=== PATIENT | female | born 1970 | race Caucasian/White ===

== ENCOUNTER 2024-04-21 13:12 | Inpatient (IN) | payer OTHER, SELFPAY ==
[2024-04-21] VITALS (7 sets, daily range): BP systolic 98–134; BP diastolic 60–81; BMI 18.1
[2024-04-21 09:24] LABS: % Basophils 0.2 % (0-2); % Immature Granulocytes 0.4 % (0-0.5); % Lymphocytes 9.6 % (20.5-51.1); % Neutrophils 82.8 % (42.2-75.2); Absolute Immature Granulocytes 0.1 10^3/uL (0-0.05); Absolute Lymphocytes 1.4 10^3/uL (1.2-3.4); Absolute Neutrophils 11.7 10^3/uL (1.4-6.5); Hematocrit 48.1 % (37.0-47.0); Hemoglobin 16.8 g/dL (12.0-16.0); Mean Corp Hgb Conc. 34.9 g/dL (33.0-37.0); Mean Corpuscular Hgb 30.6 pg (27.0-31.0); Mean Corpuscular Volume 87.6 fL (81.0-99.0); Mean Platelet Volume 10.6 fL (7.4-10.4); Nucleated Red Blood Cells % 0 %; Platelet Count 255 10^3/uL (130-400); Red Blood Cell Count 5.49 10^6/uL (4.20-5.40); Red Cell Dist. Width 12.3 % (11.5-14.5); White Blood Cell Count 14.1 10^3/uL (4.8-10.8)
[2024-04-21 09:33] LABS: ALT (SGPT) 16 U/L (0-35); AST (SGOT) 24 U/L (14-36); Albumin 4.3 g/dl (3.5-5.0); Alkaline Phosphatase 61 U/L (38-126); Blood Urea Nitrogen 12 mg/dl (7-17); COVID-19 Antigen Negative (Negative); Calcium 9.3 mg/dl (8.4-10.2); Carbon Dioxide 25 mmol/L (22-30); Chloride 95 mmol/L (98-107); Glucose 119 mg/dl (70-99); Potassium 3.2 mmol/L (3.5-5.1); Sodium 134 mmol/L (135-145); Total Bilirubin 0.5 mg/dl (0.2-1.3); Total Protein 7.2 g/dl (6.3-8.2); eGFR > 60.00
--- NOTE | 2024-04-21 09:39 | ED.GENMED ---
History of Present Illness
<Yanira Johnson TIRE SPECIALIST - Last Filed: 04/21/24 18:09>
General
Chief Complaint: Cold/Flu/URI Symptoms
Source: patient and spouse
Exam Limitations: none
Time Seen by Provider: 04/21/24 08:58
Nursing documentation reviewed up to this point in time: agreed with
History of Present Illness
History of Present Illness:
53 yo female w h/o seizures, chronic neck and back pain, present for 4-5 days illness. Started with scratchy throat, then moved to chest congestion, cough productive of 'brown mucus.' [place] feverish, didn't take temp. Took Tylenol VETERINARIAN SMALL ANIMAL. Vomited once,
diarrhea x 3 yesterday, none today after taking Imodium.
Past History
<Yanira Johnson, TIRE SPECIALIST - Last Filed: 04/21/24 18:09>
Past History
ED Past Medical History: Seizures and Other (chronic neck and back pain)
ED Past Surgical History: None
Social History
Tobacco: Former smoker
Alcohol: None
Personal:
Living: with family
Employment: Employed
Review of Systems
<Yanira Johnson, TIRE SPECIALIST - Last Filed: 04/21/24 18:09>
Review of Systems
Allergies reviewed?: Yes
All Other Systems: ROS reviewed and negative except as documented in HPI and ROS
Constitutional: Reports fever
Respiratory: Reports cough; Denies trouble breathing
Cardiac: Denies chest pain
ABD/GI: Reports diarrhea (yesterday, none today); Denies abdominal pain or vomiting
: Denies dysuria or difficulty voiding
Musculoskeletal: Reports no symptoms and other
Skin: Reports no symptoms
Neurological: Reports no symptoms
Phy Exam
<Yanira Johnson, TIRE SPECIALIST - Last Filed: 04/21/24 18:09>
Physical Exam
Physical Exam:
GENERAL: No acute distress. A&Ox3.
CONSTITUTIONAL: Afebrile.
EYES: clear, conjunctivae normal
ENMT: moist mucus membranes, Pharynx nl
RESPIRATORY: Regular respirations, nonlabored, lungs with rhonchi in right mid to lower lung godfrey.
CARDIOVASCULAR: Regular rate and rhythm, no murmurs, no rubs.
GI: Soft, nontender, normal BS
MUSCULOSKELETAL: Moves with ease. Well perfused.
SKIN: Warm, dry, pink
PSYCH: Normal mood and affect. Well kept, interactive and appropriate
NEUROLOGIC: Awake, alert and oriented. No focal neurological deficits
Course
<Yanira Johnson, TIRE SPECIALIST - Last Filed: 04/21/24 18:09>
Orders/Labs/Results
Orders:
Orders
04/21/24 09:02
COVID-19 Antigen Urgent
Source: Nasal Swab
Complete Blood Count/With Diff Urgent
Comprehensive Metabolic Panel Urgent
Influenza A+B Rapid Molecular Urgent
RODDY Source: Nasal Swab
Specimen Description:
04/21/24 09:38
CR Chest - 2 Views Urgent
Comment:
Reason For Exam: fever, flu+, coarse rhonchi Right lung
04/21/24 09:44
Encourage PO Hydration-Treatme ONCE
04/21/24 09:46
Potassium Chloride [KCl] 40 meq PO NOW STA
04/21/24 10:34
Azithromycin 500 mg/250 ml [Zithromax Infusion] 500 mg in 250 ml IV NOW
04/21/24 12:14
Admit/Transfer Patient As Directed
Co-Sign Provider:
Level of Care: Inpatient admission
Assign to:: Medical/Surgical
Physician / Group: Hospitalist
Diagnosis: Pneumonia
Patient Condition: Fair
Reason for Hospitalization: Pneumonia with SIRS criteria met on arrival
Expected length of stay greater than two midnights?: Yes
ELOS- Estimated Length of Stay in days: 2
I certify the patient meets the requirements for IP care: Yes
04/21/24 12:15
PRN Pain Medication Management As Directed
May give lesser potent ordered pain med per pt: Yes
preference::
Protocol:: Medication orders for pain may be administered in a
manner that supports deferring to patient preference
when the pt is:
- Requesting an ordered lesser potent pain medication.
Least to most potent pain medications are defined
as: acetaminophen < NSAID < tramadol < opioids
(morphine, oxycodone, hydromorphone).
- Requesting a lesser dose of the same medication IF
ORDERED.
- Requesting a less intrusive route of administration
if both routes are prescribed by the provider (PO <
IV).
04/21/24 12:24
Code Status As Directed
Resuscitation Status: Full Code
04/21/24 13:59
0.9% Sodium Chloride 1000 ml [Nss] 1,000 ml IV 75 mls/hr
Bisacodyl [Dulcolax] 10 mg RECTAL [id number] PRN
Docusate W/Senna [Senokot-S] 1 tablet PO BIDPRN PRN
Lamotrigine [Lamictal] 100 mg PO ONCE ONE
Ondansetron Injectable [Zofran] 4 mg IV Q6HPRN PRN
Oxycodone/Acetaminophen [Percocet 5/325] 1 tablet PO TIDPRN PRN
Polyethylene Glycol Powder [Miralax] 17 grams PO DAILYPRN PRN
04/21/24 13:59
Activity As Directed
Activity Level: As Tolerated
Vital Signs As Directed
Frequency: Per unit guidelines
DX Deep Vein Thrombosis Video Routine
04/21/24 14:00
CefTRIAXone [Rocephin] 1,000 mg IV Q24H
04/21/24 Dinner
Regular
At Your Request: Full Participation
04/21/24 18:00
Enoxaparin Sodium [Lovenox] 40 mg SC QPM
04/21/24 22:00
tafluprost (PF) [Zioptan (PF)] 1 drop BOTH EYES HS
04/22/24 06:00
Basic Metabolic Panel IN AM
Complete Blood Count/No Diff IN AM
Magnesium IN AM
04/22/24 08:00
Azithromycin [Zithromax] 500 mg PO DAILY
Lamotrigine [Lamictal] 100 mg PO DAILY
Abnormal Lab Results
04/21/24
09:02
WBC 14.1 H 10^3/uL
(4.8-10.8)
RBC 5.49 H 10^6/uL
(4.20-5.40)
Hgb 16.8 H g/dL
(12.0-16.0)
Hct 48.1 H %
(37.0-47.0)
MPV 10.6 H fL
(7.4-10.4)
Abs Immat Gran (auto) 0.1 H 10^3/uL
(0-0.05)
Absolute Neuts (auto) 11.7 H 10^3/uL
(1.4-6.5)
Absolute Monos (auto) 1.0 H 10^3/uL
(0.1-0.6)
Neutrophils % 82.8 H %
(42.2-75.2)
Lymphocytes % 9.6 L %
(20.5-51.1)
Sodium 134 L mmol/L
(135-145)
Potassium 3.2 L mmol/L
(3.5-5.1)
Chloride 95 L mmol/L
(98-107)
Glucose 119 H mg/dl
(70-99)
04/21/24 09:02
04/21/24 09:02
Vital Signs
Initial and Last Documented VS:
Initial Vital Signs
Temp Pulse Resp BP Pulse Ox
98.5 F 97 20 118/81 95
04/21/24 08:46 04/21/24 08:46 04/21/24 08:46 04/21/24 08:46 04/21/24 08:46
Last Documented Vital Signs
Temp Pulse Resp BP Pulse Ox
99.4 F 86 18 110/72 95
04/21/24 16:06 04/21/24 13:58 04/21/24 13:58 04/21/24 13:58 04/21/24 13:58
Divorce Mediator consulted with Physician
Divorce Mediator consulted with physician?: Yes
Name of Physician Consulted: Donna
<Allan Thompson MD - Last Filed: 04/21/24 10:38>
Orders/Labs/Results
Orders:
Orders
04/21/24 09:02
COVID-19 Antigen Urgent
Source: Nasal Swab
Complete Blood Count/With Diff Urgent
Comprehensive Metabolic Panel Urgent
Influenza A+B Rapid Molecular Urgent
RODDY Source: Nasal Swab
Specimen Description:
04/21/24 09:38
CR Chest - 2 Views Urgent
Comment:
Reason For Exam: fever, flu+, coarse rhonchi Right lung
04/21/24 09:44
Encourage PO Hydration-Treatme ONCE
04/21/24 09:46
Potassium Chloride [KCl] 40 meq PO NOW STA
04/21/24 10:34
Azithromycin 500 mg/250 ml [Zithromax Infusion] 500 mg in 250 ml IV NOW
04/21/24 12:14
Admit/Transfer Patient As Directed
Co-Sign Provider:
Level of Care: Inpatient admission
Assign to:: Medical/Surgical
Physician / Group: Hospitalist
Diagnosis: Pneumonia
Patient Condition: Fair
Reason for Hospitalization: Pneumonia with SIRS criteria met on arrival
Expected length of stay greater than two midnights?: Yes
ELOS- Estimated Length of Stay in days: 2
I certify the patient meets the requirements for IP care: Yes
04/21/24 12:15
PRN Pain Medication Management As Directed
May give lesser potent ordered pain med per pt: Yes
preference::
Protocol:: Medication orders for pain may be administered in a
manner that supports deferring to patient preference
when the pt is:
- Requesting an ordered lesser potent pain medication.
Least to most potent pain medications are defined
as: acetaminophen < NSAID < tramadol < opioids
(morphine, oxycodone, hydromorphone).
- Requesting a lesser dose of the same medication IF
ORDERED.
- Requesting a less intrusive route of administration
if both routes are prescribed by the provider (PO <
IV).
04/21/24 12:24
Code Status As Directed
Resuscitation Status: Full Code
04/21/24 13:59
0.9% Sodium Chloride 1000 ml [Nss] 1,000 ml IV 75 mls/hr
Bisacodyl [Dulcolax] 10 mg RECTAL [id number] PRN
Docusate W/Senna [Senokot-S] 1 tablet PO BIDPRN PRN
Lamotrigine [Lamictal] 100 mg PO ONCE ONE
Ondansetron Injectable [Zofran] 4 mg IV Q6HPRN PRN
Oxycodone/Acetaminophen [Percocet 5/325] 1 tablet PO TIDPRN PRN
Polyethylene Glycol Powder [Miralax] 17 grams PO DAILYPRN PRN
04/21/24 13:59
Activity As Directed
Activity Level: As Tolerated
Vital Signs As Directed
Frequency: Per unit guidelines
DX Deep Vein Thrombosis Video Routine
04/21/24 14:00
CefTRIAXone [Rocephin] 1,000 mg IV Q24H
04/21/24 Dinner
Regular
At Your Request: Full Participation
04/21/24 18:00
Enoxaparin Sodium [Lovenox] 40 mg SC QPM
04/21/24 22:00
tafluprost (PF) [Zioptan (PF)] 1 drop BOTH EYES HS
04/22/24 06:00
Basic Metabolic Panel IN AM
Complete Blood Count/No Diff IN AM
Magnesium IN AM
04/22/24 08:00
Azithromycin [Zithromax] 500 mg PO DAILY
Lamotrigine [Lamictal] 100 mg PO DAILY
Abnormal Lab Results
04/21/24
09:02
WBC 14.1 H 10^3/uL
(4.8-10.8)
RBC 5.49 H 10^6/uL
(4.20-5.40)
Hgb 16.8 H g/dL
(12.0-16.0)
Hct 48.1 H %
(37.0-47.0)
MPV 10.6 H fL
(7.4-10.4)
Abs Immat Gran (auto) 0.1 H 10^3/uL
(0-0.05)
Absolute Neuts (auto) 11.7 H 10^3/uL
(1.4-6.5)
Absolute Monos (auto) 1.0 H 10^3/uL
(0.1-0.6)
Neutrophils % 82.8 H %
(42.2-75.2)
Lymphocytes % 9.6 L %
(20.5-51.1)
Sodium 134 L mmol/L
(135-145)
Potassium 3.2 L mmol/L
(3.5-5.1)
Chloride 95 L mmol/L
(98-107)
Glucose 119 H mg/dl
(70-99)
04/21/24 09:02
04/21/24 09:02
Vital Signs
Initial and Last Documented VS:
Initial Vital Signs
Temp Pulse Resp BP Pulse Ox
98.5 F 97 20 118/81 95
04/21/24 08:46 04/21/24 08:46 04/21/24 08:46 04/21/24 08:46 04/21/24 08:46
Last Documented Vital Signs
Temp Pulse Resp BP Pulse Ox
99.4 F 86 18 110/72 95
04/21/24 16:06 04/21/24 13:58 04/21/24 13:58 04/21/24 13:58 04/21/24 13:58
<Yanira Johnson TIRE SPECIALIST - Last Filed: 04/21/24 18:09>
MDM/Problems Addressed
Differential Diagnosis Includes:
COVID, influenza, pneumonia
MDM/Problems Addressed:
53 yo female w h/o seizures, chronic neck and back pain, present for 4-5 days illness. Started with scratchy throat, then moved to chest congestion, cough productive of 'brown mucus.' [place] feverish, didn't take temp. Took Tylenol VETERINARIAN SMALL ANIMAL. Vomited once,
diarrhea x 3 yesterday, none today after taking Imodium.
recently had Flu
Afebrile, NAD
Rhonchi right lung
CBC: WBC 14.1
CMP with no clinically significant abnormality
COVID-negative
Influenza A+
Patient is out of the window for Tamiflu
10:30 AM:
Chest x-ray radiology report read: Findings suggesting moderate right lower lobe pneumonia.
Patient meets criteria for SIRS
Dr. Thompson evaluated patient and agrees with admission
Patient and informed and agree with plan
<Yanira Johnson NP - Last Filed: 04/21/24 18:09>
*Critical Care Note
Total Time (30-74mins, 75-104mins- exclusive of procedures): Not Applicable
ED Attending Note
<Yanira Johnson NP - Last Filed: 04/21/24 18:09>
-
Portions of this chart may have been created with voice recognition software.� Occasional wrong word or��sound alike� substitutions may have occurred due to the inherent limitations of voice recognition software.
<Allan Thompson MD - Last Filed: 04/21/24 10:38>
ED Attending Note
Patient seen and examined by attending physician: Yes
ED Attending Note:
I have seen and evaluated the patient with a [id number] encounter. I have spoken to the advance practicer provider and involved in the medical history, the physical exam, medical decision making.
Evaluation and management service: agree unless noted differently below.
Results interpretation: agree unless noted differently below.
Focused HPI: 53-year-old female with history as documented presents to the ER for flulike illness. Patient reports she has been sick for for 5 days. She reports that she has had cough productive of yellowish sputum. She says she has had some
nausea and 1 episode of vomiting. She says she has had multiple episodes of diarrhea. She says that she has some mild soreness in her chest from coughing. Mild shortness of breath. Tactile fever treated with Tylenol at home. Has been sick with
URI symptoms for about 2 days but recovered quickly. Patient not improving and so she came to the ER.
Physical exam: Awake alert no distress. Vital signs noted all within normal limits including normal respiratory rate, normal pulse ox. She has no cardiac rubs gallops or murmurs. She has occasional coughing during exam and scattered rhonchorous
breath sounds on lung auscultation. She has no increased work of breathing or signs of respiratory distress. She has moist mucous membranes and good skin turgor.
Medical Decision Makin-year-old female presents for evaluation of flulike illness, productive cough. She had lab work sent in triage including a CBC which showed leukocytosis, CMP shows mild hypokalemia. Will replete potassium p.o. Her
influenza is positive suspect this is the etiology of her symptoms. Will check a chest x-ray to rule out pneumonia. Encourage p.o. fluids. No indication for Tamiflu patient currently on day 4�5 of symptoms. Reassess after the above.
Chest x-ray shows right lower lobe pneumonia. Patient with multiple SIRS criteria will admit for treatment of pneumonia and influenza.
Discharge Plan
Departure
Patient Disposition: Admit
Date of Disposition: 04/21/24
Time of Disposition: 10:33
Admit to: Med/Surg
Presentation/result/management discussed w/ accepting MD/DO: Hospitalist
Condition: Fair
Covid-19: Negative COVID-19
Discharge Problem:
Influenza A, Right lower lobe pneumonia, SIRS (systemic inflammatory response syndrome)
Interventions
Interventions:
*Risk Screen - Suicide Last Done: 04/21/24 08:46
*General Assessment Last Done: 04/21/24 08:46
*Neglect/Abuse Screening Last Done: 04/21/24 08:46
*ED COVID-19 Vaccine History Last Done: 04/21/24 10:02
ED- Pulmonary Assessment Last Done: 04/21/24 09:50
[2024-04-21] MEDS: KCL 40 MEQ PO (09:59)
[2024-04-21] MEDS: ZITHROMAX INFUSION 250 IV (10:41)
[2024-04-21] MEDS: NSS 1000 IV (14:24)
[2024-04-21] MEDS: TORADOL 15 MG IV (14:25)
[2024-04-21] MEDS: ROCEPHIN 1000 MG IV (14:26)
[2024-04-21] MEDS: STERILE WATER FOR INJECTION 10 ML IV (14:26)
[2024-04-21] MEDS: LAMICTAL 100 MG PO (14:32)
--- NOTE | 2024-04-21 16:25 | HPS.HSE ---
Addendum entered and electronically signed by Jaz Richardson MD 04/21/24 17:17:
I personally performed a history and physical exam of the patient and discussed management with the resident. I reviewed the resident's note and agree with the documented findings and plan of care HPI/CC.
GENERAL: well developed, well nourished, female in no apparent distress
HEENT: NC/AT--mild head tremor?
HEART: regular rate and rhythm, +S1, +S2
LUNGS : clear to auscultation bilaterally
ABDOM: soft, nontender, nondistended, + bowel sounds
EXT: no cyanosis, clubbing, or edema
NEUROLOGIC: grossly intact
Sepsis (POA) due to RLL pneumonia (post viral, influenza A positive)--out of window for Tamiflu as symptoms 4-5 days- Given 1 dose IV azithromycin 500 mg in ED--agree with IV rocephin and oral zitrhromax--cont IVF
Hypokalemia-- K 3.2 in ED; given 40 mEq-- Repeat BMP in a.m.
Seizure disorder-- Continue home med: Lamictal 100 mg p.o. daily
Chronic neck/back pain-- Continue home med: Percocet 5/325 p.o. TID PRN
Borderline glaucoma- Continue home med: Tafluprost
DVT proph
code status --Full code
Original Note:
Family Physician
-
Family Physician: Dm Ortiz
Chief Complaint
-
Productive Cough, Nausea, Vomiting, Fever
History of Present Illness
Mrs. Kim is a 53-year-old female with a past medical history of seizure disorder, chronic neck pain, chronic back pain, borderline glaucoma who presented to the emergency department today with 4 to 5 days of upper respiratory symptoms and fever.
Patient states that 4 to 5 days ago, the symptoms started with a scratchy throat but then progressed to chest congestion. 3 days ago the patient started coughing, and this was productive of brown mucus, usually a quarter sized amount at a time.
The patient also endorses 1 episode of vomiting undigested food after taking Pepto-Bismol yesterday, and 3 episodes of watery nonbloody diarrhea yesterday as well. Over the course of this illness, the patient has noted subjective fevers, however,
she has not taken her temperature at home. The patient endorses taking Tylenol whenever she feels feverish, and her last dose was earlier this morning prior to arrival at the hospital. Additionally, the patient notes that she has been mostly
drinking Pedialyte for hydration. Review of systems reveals positivity for a mild headache, ear fullness and pain, and pleuritic chest pain just below the ribs. The patient specifically denies sinus pain/tenderness, shortness of breath, abdominal
pain, lower extremity swelling.
Medical History
Past Medical History
Past Medical History: Reports Other (Seizure disorder (last seizure > 30 years ago), borderline glaucoma, chronic neck and back pain)
Past Surgical History: Reports None
Social History
Tobacco: Former Smoker (Quit 30 years ago)
Alcohol: Occasional
Drug: None
Personal:
Living: With Family
Employment: Employed (Owns a cleaning company)
Family History
Family History: Not pertinent
Allergies / Home Medications
Allergies reflects when Allergies were last updated in [employer].
Home Medications with original date entered in [employer]
Allergy/Medication List:
Patient denies drug allergies.
Review of Systems
-
History Source: Patient
A 12 point ROS was completed and negative except as noted: Yes
Physical Exam
Vital Signs
Vital Signs
Temp Pulse Resp BP Pulse Ox
99.4 F 86 18 110/72 95
04/21/24 16:06 04/21/24 13:58 04/21/24 13:58 04/21/24 13:58 04/21/24 13:58
Physical Exam
General: Other (Appears uncomfortable, anxious, speaking in full sentences,)
HEENT: NormoCephalic, Anicteric, Moist mucous membranes and Other (Bilateral otoscopic examination performed; neither tympanic membrane could be visualized secondary to obscuration by cerumen.)
Respiratory: Rhonchi (In the mid and lower right lung.) and Other (Left lung normal breath sounds.)
Cardiac: S1/S2 and Regular Rhythm
GI: Soft, Non Tender, Non Distended and Normal Bowel Sounds
Musculoskeletal: Clubbing, No Clubbing and Cyanosis
Skin: Warm and Dry
Neuro: Awake, Alert and Oriented
Psych: Anxious
Laboratory Results
-
04/21/24 09:02
04/21/24 09:02
Laboratory Results
Total Bilirubin 0.5 mg/dl (0.2-1.3) 04/21/24 09:02
AST 24 U/L (14-36) 04/21/24 09:02
ALT 16 U/L (0-35) 04/21/24 09:02
Alkaline Phosphatase 61 U/L (38-126) 04/21/24 09:02
Data Reviewed
-
Diagnostic Radiology: Image Personally Visualized and interpreted, Report Reviewed by me and Discussed with Patient
Lab Data: Labs Reviewed by me and Discussed with Patient
Impression/Plan
-
1. Sepsis POA 2/2 RLL pneumonia
- SIRS: HR 97, RR 20, WBC 14.1 on arrival
- CXR: Moderate RLL pneumonia
- Given 1 dose IV azithromycin 500 mg in ED
- Start Rocephin 1 g IV daily
- Continue azithromycin 500 mg IV daily
- Maintenance fluids: 1 L normal saline at 75 mL/h
2. Influenza A
- Supportive care
- Patient is out of the window for oseltamivir
3. Hypokalemia
- K 3.2 in ED; given 40 mEq
- Repeat BMP in a.m.
4. Seizure disorder
- Continue home med: Lamictal 100 mg p.o. daily
5. Chronic neck/back pain
- Continue home med: Percocet 5/325 p.o. TID PRN
6. Borderline glaucoma
- Continue home med: Tafluprost
Full code/Lovenox/regular diet
[2024-04-21] MEDS: LOVENOX 40 MG SC (17:31)
[2024-04-21] MEDS: MYLICON 80 MG PO (17:35)
[2024-04-21] MEDS: ZOFRAN 4 MG IV (19:22)
[2024-04-21] MEDS: TYLENOL 1000 MG PO (19:24)
[2024-04-22] MEDS: NSS 1000 IV ×2 (04:15→17:19)
[2024-04-22] MEDS: MYLICON 80 MG PO (04:15)
[2024-04-22 07:25] VITALS: BP 116/70
[2024-04-22 08:42] LABS: Hematocrit 43.6 % (37.0-47.0); Hemoglobin 14.9 g/dL (12.0-16.0); Mean Corp Hgb Conc. 34.2 g/dL (33.0-37.0); Mean Corpuscular Hgb 30.6 pg (27.0-31.0); Mean Corpuscular Volume 89.5 fL (81.0-99.0); Mean Platelet Volume 11.1 fL (7.4-10.4); Platelet Count 239 10^3/uL (130-400); Red Blood Cell Count 4.87 10^6/uL (4.20-5.40); Red Cell Dist. Width 12.4 % (11.5-14.5); White Blood Cell Count 9.1 10^3/uL (4.8-10.8)
[2024-04-22 09:04] LABS: Blood Urea Nitrogen 9 mg/dl (7-17); Calcium 8.4 mg/dl (8.4-10.2); Carbon Dioxide 29 mmol/L (22-30); Chloride 96 mmol/L (98-107); Estimated Creatinine Clearance 87 ml/min; Glucose 87 mg/dl (70-99); Magnesium 2.2 mg/dl (1.6-2.3); Sodium 135 mmol/L (135-145); eGFR > 60.00
[2024-04-22] MEDS: LAMICTAL 100 MG PO (09:21)
[2024-04-22] MEDS: ZITHROMAX 500 MG PO (09:21)
[2024-04-22 09:32] LABS: Potassium 3.4 mmol/L (3.5-5.1)
[2024-04-22] MEDS: TORADOL 30 MG IV ×2 (10:23→18:24)
[2024-04-22] MEDS: TYLENOL 650 MG PO (13:48)
--- NOTE | 2024-04-22 13:51 | W.PN.HOSP.TC ---
Addendum entered and electronically signed by Jaz Richardson MD 04/22/24 17:38:
I saw and evaluated the patient independently. I reviewed the resident�s note and agree with findings and plan as documented by Dr. Salamanca.
GENERAL: well developed, well nourished, female in no apparent distress--feeling better today
HEENT: NC/AT--mild head tremor?
HEART: regular rate and rhythm, +S1, +S2
LUNGS : clear to auscultation bilaterally
ABDOM: soft, nontender, nondistended, + bowel sounds
EXT: no cyanosis, clubbing, or edema
NEUROLOGIC: grossly intact
Sepsis (POA) due to RLL pneumonia (post viral, influenza A positive)--out of window for Tamiflu as symptoms 4-5 days- Given 1 dose IV azithromycin 500 mg in ED--agree with IV rocephin and oral zitrhromax--can stop IVF
Hypokalemia--replete
Seizure disorder-- Continue home med: Lamictal 100 mg p.o. daily
Chronic neck/back pain-- Continue home med: Percocet 5/325 p.o. TID PRN
Borderline glaucoma- Continue home med: Tafluprost
DVT proph
code status --Full code
Original Note:
Today's Communication/Plan
-
.
Assessment / Plan
Assessment / Plan
1. Sepsis POA 2/2 RLL pneumonia
- SIRS POA: HR 97, RR 20, WBC 14.1 on arrival
- 04/22: AVSS, WBC 9.1
- CXR: Moderate RLL pneumonia
- Given 1 dose IV azithromycin 500 mg in ED
- Start Rocephin 1 g IV daily (Day 2)
- Continue azithromycin 500 mg PO daily (Day 2)
- Maintenance fluids: 1 L normal saline at 75 mL/h
2. Influenza A
- Supportive care
- Patient is out of the window for oseltamivir
3. Hypokalemia
- K 3.2 in ED; given 40 mEq.
- K 3.4 today; replete another 40mEQ
- Repeat BMP in a.m.
4. Seizure disorder
- Continue home med: Lamictal 100 mg p.o. daily
5. Chronic neck/back pain
- Patient does not want her Percocet 5/325 p.o. TID PRN; uneasy on stomach.
- PRN Toradol ordered.
6. Borderline glaucoma
- Continue home med: Tafluprost
Full code/Lovenox/regular diet
Anticipated Discharge: Within 24 hours
Subjective/Interval History
-
Date of Service: April 22, 2024
Patient states her condition only mildly improved. Still c/o feeling fatigued and cough. Notes she has back pain since she has not been taking her home meds. Does not want home med Percocet because she feels it may mess with her stomach. Patient
notes that Toradol and Tylenol given yesterday at different times were helpful. Otherwise no new complaints.
Objective Data
-
Labs:
Laboratory Results
04/22/24
07:25
WBC 9.1
Hgb 14.9
Hct 43.6
Plt Count 239
Sodium 135
Potassium 3.4 L
Chloride 96 L
Carbon Dioxide 29
BUN 9
Creatinine 0.5 L
Glucose 87
Calcium 8.4
Vital Signs:
Vital Signs
Temp Pulse Resp BP Pulse Ox
98.4 F 73 16 116/70 96
04/22/24 07:25 04/22/24 07:25 04/22/24 07:25 04/22/24 07:25 04/22/24 08:55
I&O
04/21/24 04/22/24 04/23/24
06:59 06:59 06:59
Intake Total 0 / 0 480 / 480
Balance 0 / 0 480 / 480
Review of Systems
-
History Source: Patient
Constitutional: Reports No Symptoms
Respiratory: Reports Cough
Cardiac: Reports No Symptoms
Abdomen/GI: Reports No Symptoms
Musculoskeletal: Reports Other (back pain, chronic)
Neuro: Reports No Symptoms
Physical Exam
-
General: Well Developed, Well Nourished and No Apparent Distress
HEENT: Normocephalic, Atraumatic and Moist Mucous Membranes
Respiratory: Clear to Auscultation and Non Labored Respirations
Cardiac: Regular Rhythm and S1/S2
GI: Soft and Nontender
Musculoskeletal: No Clubbing, No Cyanosis and No Edema
Neuro: Awake, Alert and Oriented
Psych: Calm
Data Reviewed
-
Labs: Labs Reviewed by me and Discussed with Patient
[2024-04-22] MEDS: ROCEPHIN 1000 MG IV (14:09)
[2024-04-22] MEDS: STERILE WATER FOR INJECTION 10 ML IV (14:09)
[2024-04-22 15:28] VITALS: BP 123/75
[2024-04-22] MEDS: LOVENOX SC ×2 (17:16→17:24)
[2024-04-22] MEDS: ZOFRAN 4 MG IV (18:20)
[2024-04-22 23:26] VITALS: BP 111/68
[2024-04-23 07:30] VITALS: BP 119/70
[2024-04-23] MEDS: LAMICTAL 100 MG PO (08:03)
[2024-04-23] MEDS: ZITHROMAX 500 MG PO (08:03)
[2024-04-23 08:28] LABS: Hematocrit 43.4 % (37.0-47.0); Hemoglobin 14.8 g/dL (12.0-16.0); Mean Corp Hgb Conc. 34.1 g/dL (33.0-37.0); Mean Corpuscular Hgb 30.6 pg (27.0-31.0); Mean Corpuscular Volume 89.7 fL (81.0-99.0); Mean Platelet Volume 11.4 fL (7.4-10.4); Platelet Count 283 10^3/uL (130-400); Red Blood Cell Count 4.84 10^6/uL (4.20-5.40); Red Cell Dist. Width 12.4 % (11.5-14.5); White Blood Cell Count 6.9 10^3/uL (4.8-10.8)
[2024-04-23 08:56] LABS: Blood Urea Nitrogen 7 mg/dl (7-17); Calcium 8.4 mg/dl (8.4-10.2); Carbon Dioxide 35 mmol/L (22-30); Chloride 95 mmol/L (98-107); Estimated Creatinine Clearance 87 ml/min; Glucose 92 mg/dl (70-99); Potassium 3.2 mmol/L (3.5-5.1); Sodium 137 mmol/L (135-145); eGFR > 60.00
[2024-04-23] MEDS: KCL 40 MEQ PO (11:51)
--- NOTE | 2024-04-23 12:16 | W.PN.HOSP.TC ---
Addendum entered and electronically signed by Jaz Richardson MD 04/23/24 15:29:
I saw and evaluated the patient independently. I reviewed the resident�s note and agree with findings and plan as documented by Dr. Salamanca.
GENERAL: well developed, well nourished, female in no apparent distress--feeling better
HEENT: NC/AT
HEART: regular rate and rhythm, +S1, +S2
LUNGS : clear to auscultation bilaterally
ABDOM: soft, nontender, nondistended, + bowel sounds
EXT: no cyanosis, clubbing, or edema
NEUROLOGIC: grossly intact
Sepsis (POA) due to RLL pneumonia (post viral, influenza A positive)--out of window for Tamiflu as symptoms 4-5 days- Given 1 dose IV azithromycin 500 mg in ED--agree with IV rocephin and oral zitrhromax--can stop IVF--changed to oral augmentin at
d/c
Hypokalemia--replete
Seizure disorder-- Continue home med: Lamictal 100 mg p.o. daily
Chronic neck/back pain-- Continue home med: Percocet 5/325 p.o. TID PRN
Borderline glaucoma- Continue home med: Tafluprost
DVT proph
code status --Full code
ok for d/c
Original Note:
Today's Communication/Plan
-
.
Assessment / Plan
Assessment / Plan
1. Sepsis POA 2/2 RLL pneumonia
- SIRS POA: HR 97, RR 20, WBC 14.1 on arrival
- 04/22: AVSS, WBC 9.1
- 0: AVSS, WBC 6.9
- CXR: Moderate RLL pneumonia
- Given 1 dose IV azithromycin 500 mg in ED
- Reveived 2 days of Rocephin 1 g IV daily, 2 days of azithromycin 500 mg PO daily
- Transition to Oral Augmentin for 7 more days; to be discharged home today.
2. Influenza A
- Supportive care
- Patient is out of the window for oseltamivir
3. Hypokalemia
- K 3.2 in ED; given 40 mEq, improved.
- Again 3.2 this morning, will replete with oral potassium.
4. Seizure disorder
- Continue home med: Lamictal 100 mg p.o. daily
5. Chronic neck/back pain
- Patient does not want her Percocet 5/325 p.o. TID PRN; uneasy on stomach.
- PRN Toradol ordered.
6. Borderline glaucoma
- Continue home med: Tafluprost
Full code/Lovenox/regular diet
Anticipated Discharge: Today
Subjective/Interval History
-
Date of Service: April 23, 2024
Patient seen and examined while sitting up in bed and ready to eat breakfast. Patient states she feels much better today, albeit with lingering cough. Patient denies any new complaints this morning.
Objective Data
-
Labs:
Laboratory Results
04/23/24 04/23/24
06:50 07:19
WBC 6.9
Hgb 14.8
Hct 43.4
Plt Count 283
Sodium 137
Potassium 3.2 L
Chloride 95 L
Carbon Dioxide 35 H
BUN 7
Creatinine 0.5 L
Glucose 92
Calcium 8.4
Vital Signs:
Vital Signs
Temp Pulse Resp BP Pulse Ox
99.3 F 97 18 119/70 96
04/23/24 07:30 04/23/24 07:30 04/23/24 07:30 04/23/24 07:30 04/23/24 07:30
I&O
04/22/24 04/23/24 04/24/24
06:59 06:59 06:59
Intake Total 0 / 0 1740 / 1740
Balance 1739
Review of Systems
-
History Source: Patient
Constitutional: Reports No Symptoms
EENT: Reports No Symptoms Reported
Respiratory: Reports Cough
Cardiac: Reports No Symptoms
Abdomen/GI: Reports No Symptoms
Musculoskeletal: Reports No Symptoms
Neuro: Reports No Symptoms
Physical Exam
-
General: Well Developed, Well Nourished and No Apparent Distress
HEENT: Normocephalic and Atraumatic
Respiratory: Clear to Auscultation and Non Labored Respirations
Cardiac: Regular Rhythm and S1/S2
GI: Soft, Nontender and Nondistended
Musculoskeletal: No Clubbing, No Cyanosis and No Edema
Neuro: Awake and Alert
Psych: Calm
Data Reviewed
-
Labs: Labs Reviewed by me and Discussed with Patient
[2024-04-23] MEDS: STERILE WATER FOR INJECTION 10 ML IV (14:08)
[2024-04-23] MEDS: FLUSH (NSS) 2 FLUSH IV (14:08)
[2024-04-23] MEDS: ROCEPHIN 1000 MG IV (14:08)
--- NOTE | 2024-04-23 14:25 | CM ---
BRIANA met with Patricia to complete IA. She lives with her in a 2 story home with 3 entry steps. Both Patricia and her are (I) amb and adls.
Patricia denies need for any discharge services and will return home with her who will provide transportation.
Plan: Discharge to home with no needs.
[2024-04-23 14:54] VITALS: BP 115/76
--- NOTE | 2024-04-23 15:20 | W.DCSUMMARY ---
Addendum entered and electronically signed by Jaz Richardson MD 04/23/24 15:35:
Read, reviewed, and agree. See same day progress note for additional details. Time spent coordinating care, DC planning, review of DC plan of care with resident, transition of care, review of records in EMR, med rec, consults, notes, d/w
consultants, nursing, family, and CM = 23 minutes
Original Note:
Discharge Summary
Discharge Data
Date of Admission: 04/21/24
Date of Discharge: 04/23/24
-
Pending Results: No
Hospital Course
Mrs. Kim is a 53-year-old female with a past medical history of seizure disorder, chronic neck pain, chronic back pain, borderline glaucoma who presented to the emergency department at [facility] on 04/21/2024 with 4 to 5 days of upper
respiratory symptoms and fever. The symptoms began with a scratchy throat but then progressed to chest congestion. Subsequently the patient began coughing and this was productive of brown mucus usually a quarter sized amount of time.
Subsequently, the patient began having episodes of watery nonbloody diarrhea and 1 episode of vomiting. The patient noted subjective fevers, however she did not take her temperature at home.
In the emergency department the patient exhibited rhonchi in the right middle to lower lung godfrey. Complete blood count revealed a white count of 14.1. Influenza A testing was positive. A chest x-ray revealed a moderate right sided lower lobe
pneumonia. Since the patient was initially mildly tachypneic and tachycardic on arrival, she met the criteria for SIRS. The patient was admitted to the hospital that afternoon for IV antibiotic treatment and supportive care. The patient was
initially given 1 dose of IV azithromycin 500 mg in the emergency department. The patient was then transition to oral azithromycin and IV Rocephin for the remainder of her admission. A mild hypokalemia was treated with 40 mEq of potassium given
twice. After 2 days in the hospital, the patient was discharged to home on 04/23/2024 to continue Augmentin for the next 7 days. The patient was instructed to follow-up with her primary care physician in less than 1 week.
Discharge Plan
-
Patient Disposition: Home (Routine Discharge)
Discharge Diagnosis/Procedures: Right Lower Lobe Pneumonia
Influenza A
Condition: Fair
Diet: Regular
Activity: As tolerated
Referrals:
Dm Ortiz MD [Family Provider] - in less than 1 week
Prescriptions:
New
amoxicillin-pot clavulanate [Augmentin] 500-125 mg tablet
1 tab PO BID 7 Days Qty: 14 0RF
Continued
oxycodone-acetaminophen 5-325 mg tablet
1 tab PO TIDPRN PRN (Reason: severe pain)
lamotrigine 100 mg tablet
100 mg PO DAILY
tafluprost (PF) [Zioptan (PF)] 0.0015 % Dropperette
1 drp BOTH EYES HS
Discharge Orders:
Discharge Patient (As Directed); Ordered 04/23/24
Ordered By: Montrell Salamanca
Discharge Date and Time
Discharge Date/Time: 04/23/24 15:07
Print Language: WELSH
== END 2024-04-23 15:07 | disposition home or self-care (01) | DRG 871 ==
LOC: 4 EAST ACU 13:12
PROVIDERS: Emergency Medicine; ADMITTING PHYSICIAN Internal Medicine; EMERGENCY PHYSICIAN Emergency Medicine; FAMILY PHYSICIAN Internal Medicine
DX: A41.89 Other specified sepsis (principal); J10.00 Influenza due to other identified influenza virus with unspecified type of pneumonia; E87.6 Hypokalemia; G89.29 Other chronic pain; G40.909 Epilepsy, unspecified, not intractable, without status epilepticus; H40.009 Preglaucoma, unspecified, unspecified eye; M54.2 Cervicalgia; M54.9 Dorsalgia, unspecified; Z87.891 Personal history of nicotine dependence; Z11.52 Encounter for screening for COVID-19
CPT/HCPCS: 71046; 80048; 80053; 83735; 85025; 85027; 87502; 87811; 96365; 99284